=== PATIENT | female | born 1960 | race Caucasian/White ===

== ENCOUNTER → 2017-11-14 | Outpatient (CLI) | payer OTHER | END | disposition home or self-care (01) | LOC: CFH 11:31 | PROVIDERS: ATTEND Internal Medicine | DX: Z13.1 Encounter for screening for diabetes mellitus (principal) | CPT/HCPCS: 77063; 77067 ==

== ENCOUNTER 2018-11-14 17:18 | Emergency (ER) | payer OTHER ==
[~2018-11-14] VITALS: Ht 162.6 cm; Wt 94.6 kg
[2018-11-14 20:11] VITALS: BP 135/86
== END 2018-11-14 20:25 | disposition home or self-care (01) ==
LOC: ED 20:00
DX: G25.81 Restless legs syndrome (principal); R53.83 Other fatigue; E11.9 Type 2 diabetes mellitus without complications
CPT/HCPCS: 36415; 80048; 82040; 82550; 83735; 84443; 85025; 96374; 99283; J3360; J7030

== ENCOUNTER → 2019-10-25 | Outpatient (CLI) | payer OTHER ==
[~2019-10-25] MED LIST: GABA300C10 PO; MEPERIDINE
== END | disposition home or self-care (01) ==
LOC: CVU 06:38
PROVIDERS: ATTEND Nurse Practitioner Family
DX: I83.92 Asymptomatic varicose veins of left lower extremity (principal); E11.40 Type 2 diabetes mellitus with diabetic neuropathy, unspecified; G25.81 Restless legs syndrome; G62.9 Polyneuropathy, unspecified
CPT/HCPCS: 93925; 93970

== ENCOUNTER 2020-01-19 16:17 | Emergency (ER) | payer OTHER ==
[~2020-01-19] VITALS: Ht 162.6 cm; Wt 88.9 kg
[2020-01-19] MEDS ORDERED: HYDROmorphone 1 MG/ML, 1ML INJ IVPush PRN (17:00)
[2020-01-19] MEDS ORDERED: SODIUM CHLORIDE FLUSH 10ML SYR IVF ONE (17:00)
[2020-01-19] MEDS ORDERED: ONDANSETRON 2MG/ML, 2ML IVPush ONE (17:00)
[2020-01-19] MEDS ORDERED: LIDOCAINE-MPF 1%, 5ML INFIL ONE (17:00)
[2020-01-19] MEDS ORDERED: ONDANSETRON 2MG/ML, 2ML ONE (17:08)
[2020-01-19] MEDS ORDERED: HYDROmorphone 1 MG/ML, 1ML INJ ONE (17:08)
[2020-01-19] MEDS ORDERED: LIDOCAINE-MPF 1%, 5ML ONE (17:09)
--- NOTE | 2020-01-19 17:29 | NUR ---
PATIENT MEDICATED PER EMAR
--- NOTE | 2020-01-19 18:00 | NUR ---
PARI SANCHEZ IN ROOM FOR I&D.
[2020-01-19 18:25] VITALS: BP 110/57
--- NOTE | 2020-01-19 18:25 | NUR ---
EVENT MANAGEMENT CONSULTANT TO BE CALLED IN
[2020-01-19] MEDS ORDERED: NEOSPORIN OINT. PKT 1 PACKET ONE (18:58)
--- NOTE | 2020-01-19 19:06 | NUR ---
WOUND DRESSED, PIV REMOVED. VERBALIZES UNDERSTANDING OF DISCHARGE INSTRUCTIONS, AND NEED FOR FOLLOW UP CARE. AMBULATORY WITH STEADY GAIT IN ROOM AND HALLWAY
== END 2020-01-19 19:10 | disposition home or self-care (01) ==
LOC: ED 19:04
DX: N90.89 Other specified noninflammatory disorders of vulva and perineum (principal); R10.2 Pelvic and perineal pain; F17.200 Nicotine dependence, unspecified, uncomplicated; I10 Essential (primary) hypertension; E11.9 Type 2 diabetes mellitus without complications
CPT/HCPCS: 56405; 96374; 96375; 99284; J1170; J2405